=== PATIENT | male | born 1980 | race Caucasian/White ===

== ENCOUNTER 2017-11-24 11:05 | Emergency (ER) | payer SELFPAY ==
--- OUTSIDE RECORDS SUMMARY | 2017-11-24 11:07 | XMS REPORT ---
:1980 Author Organization eClinicalWorks Care Team Providers Name Role Phone [facility] Provider Role Unavailable Allergies, Adverse Reactions, Alerts Substance Reaction Event Type N.K.D.A. Info Not Available Non Drug Allergy Problems Problem Type Condition Code Onset Dates Condition Status Assessment GERD without esophagitis K21.9 Active Problem GERD without esophagitis K21.9 Active Medications Medication Code System Code Instructions Start End Date Status Dosage Date Tylenol [facility] 89082969644 325 MG Orally Active 1 tablet as every 4 hrs needed Omeprazole ND [id number] 40 MG Orally November 14, Active 1 capsule Once a day 2017 Results No Known Results Summary Purpose eClinicalWorks Submission
[2017-11-24 12:37] LABS: Absolute Lymphocytes (CBC) 2.6 K/uL (0.7-4.9); Absolute Monocytes 0.9 K/uL (0.1-1.3); Absolute Neutrophil 8.1 K/uL (1.8-8.0); Basophils % 0.6 % (0-1.3); Eosinophils % 1.2 % (0-4.4); Hematocrit 43.9 % (39.6-49.0); MCH 30.1 pg (27.0-35.0); MCV 86.6 fL (80-100); MPV 7.6 fL (7.6-11.3); Monocytes % 7.4 % (3.3-12.3); RBC Red Blood Cell Count 5.07 M/uL (4.33-5.43)
[2017-11-24] MEDS ORDERED: MEPERIDINE HCL 25 MG/0.5 ML ONE (12:39)
[2017-11-24] MEDS ORDERED: PROMETHAZINE 25 MG/ML VIAL ONE (12:40)
[2017-11-24 12:47] LABS: Urine Blood NEGATIVE (NEG); Urine Glucose NEGATIVE (NEG); Urine Protein NEGATIVE (NEG); Urine Specific Gravity >1.030 (1.005-1.030); Urine pH 5.5 (5.0-7.0)
[2017-11-24 12:51] LABS: ALT/SGPT 63 IU/L (10-60); Bicarbonate 30 mEq/L (21-31); Glucose Level 112 mg/dL (65-120); Lipase 26 U/L (22-51); Sodium Level 137 mEq/L (135-145)
[2017-11-24 12:57] LABS: AST/SGOT 28 IU/L (10-42); Albumin 4.7 g/dL (3.2-5.5); Alkaline Phosphatase 88 IU/L (42-121); BUN Blood Urea Nitrogen 13 mg/dL (6-20); Bilirubin Direct 0.1 mg/dL (0-0.2); Bilirubin Total 0.2 mg/dL (0.3-1.2)
--- NOTE | 2017-11-24 13:56 | RAD REPORT ---
EXAM DESCRIPTION: US - Abdomen Exam Limited - 11/24/2017 1:05 pm CLINICAL HISTORY: Abdominal pain. COMPARISON: None. FINDINGS: The gallbladder wall is not thickened. A gallstone is not seen. The biliary tree is normal caliber. IMPRESSION: Unremarkable gallbladder ultrasound.
--- NOTE | 2017-11-24 13:56 | RAD REPORT ---
EXAM DESCRIPTION: CT - Abdomen Pelvis W Contrast - 11/24/2017 1:38 pm CLINICAL HISTORY: Abdominal pain right upper quadrant pain for 3 weeks COMPARISON: none. TECHNIQUE: Computed axial tomography of the abdomen pelvis was obtained. 100 cc Isovue-300 was admin istered intravenously. Oral contrast was not requested which limits evaluation of bowel. All CT scans are performed using dose optimization technique as appropriate and may include automated exposure control or mA/KV adjustment according to patient size. FINDINGS: Mild fatty infiltration liver seen. The Spleen, pancreas, adrenal and left kidney appear unremarkable. A small right renal cyst is presen t. There is no evidence of diverticulitis. The appendix has been removed A small left posterolateral disc herniation in combination with spondylosis result in mild central sp inal stenosis at L4-5 IMPRESSION: No acute abnormality is displayed.
--- NOTE | 2017-11-24 13:59 | EDPHYS ---
Physician Documentation [facility] Name: Randy Lopez Age: 37 yrs Sex: Male : 1980 Arrival Date: 11/24/2017 Time: 11:08 Bed 15 Private MD: Suleman [facility] ED Physician Mahesh Gregg HPI: 11/24 12:37 This 37 yrs old Male presents to ER via Ambulatory with complaints of jr8 Abdominal Pain. 12:37 The patient presents with abdominal pain in the epigastric area, in the right upper jr8 quadrant. Onset: The symptoms/episode began/occurred gradually, 3 week(s) ago, and became worse and became persistent. The symptoms radiate to right back. Associated signs and symptoms: none. The symptoms are described as shooting, stabbing. Modifying factors: The symptoms are alleviated by nothing, the symptoms are aggravated by food. Severity of pain: At its worst the pain was moderate in the emergency department the pain is unchanged. The patient has not experienced similar symptoms in the past. The patient has been recently seen by a physician:. was prescribed omeprazole by PCP. Still not getting better . Historical: - Allergies: 11:24 No Known Allergies; sv - Home Meds: 11:24 None [Active]; sv - PMHx: 11:24 None; sv - PSHx: 11:24 Appendectomy; sv - Immunization history:: Adult Immunizations up to date. - Social history:: Smoking status: Patient/guardian denies using tobacco, Patient/guardian denies using alcohol, the patient reports quitting approximately .25 years ago. - Ebola Screening: : No symptoms or risks identified at this time. ROS: 12:37 Eyes: Negative for injury, pain, redness, and discharge, ENT: Negative for injury, jr8 pain, and discharge, Neck: Negative for injury, pain, and swelling, Cardiovascular: Negative for chest pain, palpitations, and edema, Respiratory: Negative for shortness of breath, cough, wheezing, and pleuritic chest pain, Back: Negative for injury and pain, MS/Extremity: Negative for injury and deformity, Skin: Negative for injury, rash, and discoloration, Neuro: Negative for headache, weakness, numbness, tingling, and seizure. 12:37 Abdomen/GI: Positive for abdominal pain, diarrhea, Negative for nausea and vomiting, abdominal cramps, abdominal distension, anorexia, dysphagia, hematemesis, black/tarry stool, rectal pain, rectal bleeding, bowel incontinence, flatulence. Exam: 12:37 ENT: Nares patent. No nasal discharge, no septal abnormalities noted. Tympanic jr8 membranes are normal and external auditory canals are clear. Oropharynx with no redness, swelling, or masses, exudates, or evidence of obstruction, uvula midline. Mucous membranes moist. Neck: Trachea midline, no thyromegaly or masses palpated, and no cervical lymphadenopathy. Supple, full range of motion without nuchal rigidity, or vertebral point tenderness. No Meningismus. Cardiovascular: Regular rate and rhythm with a normal S1 and S2. No gallops, murmurs, or rubs. Normal PMI, no JVD. No pulse deficits. Respiratory: Lungs have equal breath sounds bilaterally, clear to auscultation and percussion. No rales, rhonchi or wheezes noted. No increased work of breathing, no retractions or nasal flaring. Back: No spinal tenderness. No costovertebral tenderness. Full range of motion. Skin: Warm, dry with normal turgor. Normal color with no rashes, no lesions, and no evidence of cellulitis. MS/ Extremity: Pulses equal, no cyanosis. Neurovascular intact. Full, normal range of motion. Neuro: Awake and alert, GCS 15, oriented to person, place, time, and situation. Cranial nerves II-XII grossly intact. Motor strength 5/5 in all extremities. Sensory grossly intact. Cerebellar exam normal. Normal gait. 12:37 Abdomen/GI: Inspection: abdomen appears normal, Bowel sounds: active, all quadrants, Palpation: soft, in all quadrants, mild abdominal tenderness, in the epigastric area, moderate abdominal tenderness, in the right upper quadrant, mass, is not appreciated, rebound tenderness, is not appreciated, voluntary guarding, is not appreciated, involuntary guarding, is not appreciated, no appreciated organomegaly, Indicators: McBurney's point is not tender, Sandoval's sign is positive, Rovsing's sign is negative, Obturator sign is negative. Vital Signs: 11:24 BP 132 / 84; Pulse 85; Resp 20; Temp 98(O); Pulse Ox 98% ; Weight 93.44 kg; Height 5 sv ft. 7 in. (170.18 cm); Pain 10/10; 11:24 Body Mass Index 32.26 (93.44 kg, 170.18 cm) sv MDM: 12:04 Patient medically screened. jr8 13:57 Data reviewed: vital signs, nurses notes, lab test result(s), radiologic studies, CT jr8 scan, and as a result, I will discharge patient. Data interpreted: Pulse oximetry: on room air is 98 %. Interpretation: normal. Counseling: I had a detailed discussion with the patient and/or guardian regarding: the historical points, exam findings, and any diagnostic results supporting the discharge/admit diagnosis, lab results, radiology results, the need for outpatient follow up, a general machine operator, to return to the emergency department if symptoms worsen or persist or if there are any questions or concerns that arise at home. 11/24 12:08 Order name: Basic Metabolic Panel; Complete Time: 12:59 8 11/24 12:08 Order name: CBC with Diff; Complete Time: 12:40 8 11/24 12:08 Order name: Creatinine for Radiology; Complete Time: 12:59 8 11/24 12:08 Order name: Hepatic Function; Complete Time: 12:59 8 11/24 12:08 Order name: Lipase; Complete Time: 12:59 8 11/24 12:42 Order name: Urine Dipstick--Ancillary (enter results); Complete Time: 12:48 1 11/24 12:08 Order name: IV Saline Lock; Complete Time: 12:27 8 11/24 12:08 Order name: Labs collected and sent; Complete Time: 12:27 8 11/24 12:08 Order name: Urine Dipstick-Ancillary (obtain specimen); Complete Time: 12:27 8 11/24 12:08 Order name: US Abdomen Limited; Complete Time: 13:57 8 11/24 13:10 Order name: CT Abd/Pelvis - W/Contrast; Complete Time: 13:57 jr8 Administered Medications: 12:35 Drug: Demerol 25 mg Route: IVP; Site: right antecubital; hj 13:54 Follow up: Response: No adverse reaction; Pain is decreased em 12:35 Drug: Phenergan 12.5 mg Route: IVP; Site: right antecubital; hj 13:55 Follow up: Response: No adverse reaction em Disposition: 19:06 Co-signature as Attending Physician, Mahesh Gregg MD. gs Disposition: 11/24/17 13:58 Discharged to Home. Impression: Upper abdominal pain, unspecified. - Condition is Stable. - Discharge Instructions: Abdominal Pain, Adult. - Prescriptions for Zofran 4 mg Oral Tablet - take 1 tablet by ORAL route every 12 hours As needed; 20 tablet. Tramadol 50 mg Oral Tablet - take 1 tablet by ORAL route every 8 hours as needed; 12 tablet. - Medication Reconciliation Form, Thank You Letter, Antibiotic Education, Prescription Opioid Use form. - Follow up: Selena Pal MD; When: 2 - 3 days; Reason: Recheck today's complaints, Continuance of care, Re-evaluation by your physician. - Problem is new. - Symptoms have improved. Signatures: Dispatcher [employer] Nighat Mancia RN RN sv Braulio Humphreys, REPAIRER EVAPORATOR REPAIRER EVAPORATOR em Denis Frias PA PA jr8 Jamey Ballard RN RN hj Starr, Gregory, MD MD Corrections: (The following items were deleted from the chart) 14:36 13:58 11/24/2017 13:58 Discharged to Home. Impression: Upper abdominal pain, em unspecified. Condition is Stable. Forms are Medication Reconciliation Form, Thank You Letter, Antibiotic Education, Prescription Opioid Use. Follow up: Selena Pal; When: 2 - 3 days; Reason: Recheck today's complaints, Continuance of care, Re-evaluation by your physician. Problem is new. Symptoms have improved. jr8
--- NOTE | 2017-11-24 13:59 | ER ---
Nurse's Notes [facility] Name: Randy Lopez Age: 37 yrs Sex: Male : 1980 Arrival Date: 11/24/2017 Time: 11:08 Bed 15 Private MD: Fabián Shell Diagnosis: Upper abdominal pain, unspecified Presentation: 11/24 11:22 Presenting complaint: states: RUQ pain and epigastric pain x 3 weeks. Pt saw PCP sv and said it could be gastritis and was prescribed Omeprazole. Pt reports pain has increased. Transition of care: patient was not received from another setting of care. Onset of symptoms was November 03, 2017. Care prior to arrival: None. 11:22 Method Of Arrival: Ambulatory sv 11:22 Acuity: RICH 3 sv 12:34 Risk Assessment: Do you want to hurt yourself or someone else? Patient reports no hj desire to harm self or others. Initial Sepsis Screen: Does the patient meet any 2 criteria? No. Patient's initial sepsis screen is negative. Does the patient have a suspected source of infection? No. Patient's initial sepsis screen is negative. Triage Assessment: 12:34 General: Appears in no apparent distress. uncomfortable, Behavior is calm, cooperative, hj appropriate for age. Pain: Complains of pain in abdomen. EENT: No signs and/or symptoms were reported regarding the EENT system. Neuro: Level of Consciousness is awake, alert, obeys commands, Oriented to person, place, time, situation, Appropriate for age. Cardiovascular: Capillary refill < 3 seconds Patient's skin is warm and dry. Respiratory: Airway is patent Respiratory effort is even, unlabored, Respiratory pattern is regular, symmetrical. GI: Abdomen is non-distended, obese, Bowel sounds present X 4 quads. : Derm: No signs and/or symptoms reported regarding the dermatologic system. Musculoskeletal: No signs and/or symptoms reported regarding the musculoskeletal system. Historical: - Allergies: 11:24 No Known Allergies; sv - Home Meds: 11:24 None [Active]; sv - PMHx: 11:24 None; sv - PSHx: 11:24 Appendectomy; sv - Immunization history:: Adult Immunizations up to date. - Social history:: Smoking status: Patient/guardian denies using tobacco, Patient/guardian denies using alcohol, the patient reports quitting approximately .25 years ago. - Ebola Screening: : No symptoms or risks identified at this time. Screenin:33 Abuse screen: Denies threats or abuse. Denies injuries from another. Nutritional hj screening: No deficits noted. Tuberculosis screening: No symptoms or risk factors identified. Fall Risk None identified. Assessment: 12:35 GI: Abd is soft Abdomen is tender to palpation. hj 12:35 Reassessment: see triage assessment;. hj 13:50 General: Appears in no apparent distress. comfortable, Behavior is calm, cooperative. em Pain: Complains of pain in right upper quadrant. Neuro: Level of Consciousness is awake, alert, obeys commands, Oriented to person, place, time, situation. Cardiovascular: Capillary refill < 3 seconds Patient's skin is warm and dry. Respiratory: Airway is patent Respiratory effort is even, unlabored, Respiratory pattern is regular, symmetrical. GI: Abdomen is flat. GI: Bowel sounds present X 4 quads. : No signs and/or symptoms were reported regarding the genitourinary system. EENT: No signs and/or symptoms were reported regarding the EENT system. Derm: Skin is intact, Skin is pink, warm \T\ dry. Musculoskeletal: Range of motion: intact in all extremities. 14:32 Reassessment: Patient appears in no apparent distress at this time. Patient and/or em family updated on plan of care and expected duration. Pain level reassessed. Patient is alert, oriented x 3, equal unlabored respirations, skin warm/dry/pink. Patient states feeling better. Vital Signs: 11:24 BP 132 / 84; Pulse 85; Resp 20; Temp 98(O); Pulse Ox 98% ; Weight 93.44 kg; Height 5 sv ft. 7 in. (170.18 cm); Pain 10/10; 11:24 Body Mass Index 32.26 (93.44 kg, 170.18 cm) sv ED Course: 11:08 Patient arrived in ED. sb2 11:08 Fabián Shell DO is Private Physician. sb2 11:23 Triage completed. sv 11:25 Arm band placed on right wrist. Patient placed in waiting room, Patient notified of sv wait time. 12:04 [facility] jr8 12:04 Mahesh Gregg MD is Attending Physician. jr8 12:25 Initial lab(s) drawn, by la, sent to lab. Urine collected: clean catch specimen, clear. 5 Inserted saline lock: 20 gauge in right antecubital area, using aseptic technique. Blood collected. 12:26 Patient has correct armband on for positive identification. Bed in low position. Call [facility] light in reach. Side rails up X 1. Adult w/ patient. Warm blanket given. Pillow given. Pulse ox on. NIBP on. 12:27 Basic Metabolic Panel Sent. 5 12:27 CBC with Diff Sent. 5 12:27 Creatinine for Radiology Sent. 5 12:27 Hepatic Function Sent. [facility] 12:27 Lipase Sent. [facility] 12:35 Jamey Ballard, WILVER is Primary Nurse. 12:38 Ultrasound completed. Patient tolerated well. sg3 13:05 US Abdomen Limited In Process Unspecified. EDMS 13:[address] via wheelchair. cw1 13:38 CT Abd/Pelvis - W/Contrast In Process Unspecified. EDMS 13:[address] from [address]. 13:58 Selena Pal MD is Referral Physician. jr8 14:32 No provider procedures requiring assistance completed. IV discontinued, intact, em bleeding controlled, No redness/swelling at site. Pressure dressing applied. Administered Medications: 12:35 Drug: Demerol 25 mg Route: IVP; Site: right antecubital; hj 13:54 Follow up: Response: No adverse reaction; Pain is decreased em 12:35 Drug: Phenergan 12.5 mg Route: IVP; Site: right antecubital; hj 13:55 Follow up: Response: No adverse reaction em Outcome: 13:58 Discharge ordered by . [facility] 14:33 Discharged to home ambulatory. em 14:33 Condition: good 14:33 Discharge instructions given to patient, Instructed on discharge instructions, follow up and referral plans. medication usage, Demonstrated understanding of instructions, follow-up care, medications, Prescriptions given X 2. 14:36 Patient left the ED. em Signatures: Dispatcher [employer] Nighat Mancia RN RN sv Munoz, Edgar, PLASTIC FABRICATOR PLASTIC FABRICATOR em Luly Flores 1 Denis Frias PA PA [facility] Lizzy Miller Jamey Ballard RN RN hj Martinez, Maria [facility] Tashia Caldera sg3 Turner, Esther sb2
== END 2017-11-24 14:36 | disposition home or self-care (01) ==
LOC: ER 11:05
DX: R10.11 Right upper quadrant pain (principal)
CPT/HCPCS: 36415; 74177; 76705; 80048; 80076; 81003; 83690; 85025; 96374; 96375; 99284; J2175; J2550; Q9967